=== PATIENT | male | born 1930 | race Caucasian/White ===

== ENCOUNTER → 2017-09-13 | Outpatient (CLI) | payer MEDICARE ==
--- NOTE | 2017-09-13 16:48 | Diagnostic Imaging Report ---
PROCEDURE: Frontal and lateral views of the chest. COMPARISON: Chest radiograph 09/01/2014 and 07/09/2013 INDICATIONS: COUGH FINDINGS: Lines/tubes: Left chest wall cardiac pacer with intact leads overlying the right atrium and right ventricle. Lungs: The lungs are well inflated. Reticulonodular opacities, most prominent in the peripheral left lung base, date back to at least 07/09/2013 and likely reflect chronic interstitial changes. There is no evidence of pneumonia or pulmonary edema. Pleura: There is no pleural effusion or pneumothorax. Heart and mediastinum: Tortuous calcified aorta. The heart and mediastinum are otherwise unremarkable. Bones: No acute bony abnormality. IMPRESSION: No acute cardiopulmonary disease. Dictated by: Rodrick Coulter M.D. on 09/13/2017 at 16:57 Electronically approved by: Rodrick Coulter M.D. on 09/13/2017 at 16:57
== END ==
LOC: RAD 15:20
PROVIDERS: ATTEND Internal Medicine
DX: J40 Bronchitis, not specified as acute or chronic (principal)
CPT/HCPCS: 71046